=== PATIENT | male | born 1940 | race Caucasian/White ===

== ENCOUNTER → 2020-08-27 12:56 | Outpatient (CLI) | payer MEDICARE, SELFPAY ==
--- NOTE | ~2020-08-27 | CT_ITS ---
EXAMINATION: CT chest abdomen pelvis w con EXAM DATE: 08/27/2020 13:52 INDICATION: Prostate cancer. TECHNIQUE: Spiral CT of the chest, abdomen and pelvis was performed following intravenous injection o f 100 mL Omnipaque 350. Axial, coronal and sagittal images were reviewed. Coronal maximum intensity pixel images of chest reviewed. The dose-length product (DLP) for this examination was 1181.00 mGy- cm. The exposure was tailored according to patient size (auto mA exposure control), and iterative re construction (ASIR) was used as additional dose reduction technique. There is no prior study for santino richard. FINDINGS: CHEST: Ill-defined approximately 1 cm opacity left upper lobe, appearance most consistent with posti nfectious residua but a 3 month follow-up chest CT is recommended. There is mild emphysema and hyperi nflation. There are no pleural or pericardial effusions. Tracheobronchial tree is patent. There i s no mediastinal, hilar or axillary lymphadenopathy. There is no pneumothorax. Heart normal in si ze. There is mild coronary arterial calcification, arterial sclerosis. Congenital pectus excavatum. ABDOMEN PELVIS: The liver, spleen, adrenal glands and pancreas are unremarkable. Gallbladder is unre markable. No biliary obstruction. Portal and splenic veins are patent. Kidneys enhance symmetrical ly. There is no hydronephrosis. There is a left renal cyst measuring 2 cm. There are prostate radia tion seeds. Small bilateral inguinal fat-containing hernias. The bladder is unremarkable. There is no retroperitoneal or pelvic lymphadenopathy. There is moderate scattered arteriosclerotic disease. Status post right hemicolectomy. The stomach and small bowel are unremarkable. There is moderate am ount of colonic stool. No free intraperitoneal gas. There are no osteoblastic or osteolytic lesi ons identified. IMPRESSION: 1. Ill-defined left upper lobe opacity probably infectious but 3 month follow-up low-dose chest CT i ndicated. 2. Prostate radiation seeds. No evidence of metastatic disease. 3. Chronic findings. Reviewed, dictated and finalized at location B. 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 Ill-defined left upper lobe opacity probably infectious but 3 month follow- up low-dose chest CT indicated. 2. Prostate radiation seeds. No evidence of metastatic disease. 3. Chronic findings.
[2020-08-27 13:34] LABS: Estimated Glomerular Filt Rate > 60
== END ==
DX: C61 Malignant neoplasm of prostate (principal)
CPT/HCPCS: 71260; 74177; Q9967

== ENCOUNTER → 2021-04-18 11:21 | Outpatient (CLI) | payer MEDICARE, SELFPAY ==
--- NOTE | ~2021-04-18 | CT_ITS ---
EXAMINATION: CT chest abdomen pelvis w con EXAM DATE: 04/18/2021 12:03 INDICATION: Prostate cancer . Colon cancer. Hypertension. TECHNIQUE: Spiral CT of the chest, abdomen and pelvis was performed following intravenous injection o f 100 mL Omnipaque 350. Axial, coronal and sagittal images chest, abdomen and pelvis were reviewed. Coronal maximum intensity pixel images of chest reviewed. The dose-length product (DLP) for this ex amination was 1170.51 mGy-cm. The exposure was tailored according to patient size (auto mA exposure control), and iterative reconstruction (ASIR) was used as additional dose reduction technique. Compar vito is made to prior examination from 08/27/2020. FINDINGS: CHEST: Previously described ill-defined left upper lobe opacity is unchanged consistent with postinf ectious residua. There are no suspicious lung opacities. There are no pleural or pericardial effusio ns. Tracheobronchial tree is patent. There is no mediastinal, hilar or axillary lymphadenopathy. There is no pneumothorax. Heart normal in size. There is mild coronary arterial calcification, arterial sclerosis. ABDOMEN PELVIS: The liver, spleen, adrenal glands and pancreas are unremarkable. Gallbladder is unre markable. No biliary obstruction. Portal and splenic veins are patent. Kidneys enhance symmetrical ly. There is no hydronephrosis. There is 2 cm left renal cyst. There are radiation seeds in the pro state. Small inguinal fat-containing hernias. The bladder is unremarkable. There is no retroperiton eal or pelvic lymphadenopathy. [id number] Right hemicolectomy, unremarkable anastomosis site. The stomach and small bowel are unremarkable. T here is expected amount of colonic stool. No free intraperitoneal gas. There are no osteoblastic or osteolytic lesions identified. IMPRESSION: 1. Stable left upper lobe small opacity consistent with postinfectious residua. 2. No evidence of metastatic disease. Reviewed, dictated and finalized at location A. IMPRESSION: 1. Stable left upper lobe small opacity consistent with postinfectious residua . 2. No evidence of metastatic disease.
[2021-04-18 11:47] LABS: Estimated Glomerular Filt Rate > 60
== END ==
DX: C61 Malignant neoplasm of prostate (principal)
CPT/HCPCS: 71260; 74177; Q9967

== ENCOUNTER 2021-12-29 13:55 | Emergency (ER) | payer MEDICARE, SELFPAY ==
[2021-12-29 14:13] VITALS: BP 153/85; PULSE 60; RESP 12; TEMP 36.9; O2SAT 100
--- NOTE | 2021-12-29 14:14 | ED.WOUNDLAC ---
HPI - Wound/Laceration General Chief Complaint: Skin/Abscess/Foreign Body Stated Complaint: lump in groin area Time Seen by Provider: 12/29/21 14:14 Source: patient, RN notes reviewed and old records reviewed Mode of arrival: ambulatory Limitations: no limitations History of Present Illness HPI narrative: 81 year old male presents to express care with complaints of discomfort and bulging to the right groin since last Wednesday or . Patient denies any known injury to his right groin, denies any difficulty with urination or with passing his stool, states that he is uncomfortable but denies any acute sharp pain.Patient reports that he has history of prostate cancer and he had radiation treatments. Patient is from [facility] and is staying in the area at this time. Patient reports that he does not have PCP in the area. Onset (ago): day(s) (5) Location: other (right groin) Related Data Home Medications Medication Instructions Recorded Confirmed Unable to Obtain Home Medications 12/29/21 12/29/21 Allergies Allergy/AdvReac Type Severity Reaction Status Date / Time No Known Allergies Allergy Verified 12/29/21 14:22 Review of Systems Review of Systems: CONSTITUTIONAL: Denies fever, chills, or sweats. EYES: Denies visual changes, redness, or discharge. ENT: Denies rhinorrhea, congestion, sore throat, or otalgia. CARDIOVASCULAR: Denies chest pain, palpitations, or edema. RESPIRATORY: Denies cough or dyspnea. GASTROINTESTINAL: Positive for right groin abdominal discomfort, no nausea, vomiting, or diarrhea. GENITOURINARY: Denies dysuria or hematuria. SKIN: Denies rash or itching. MUSCULOSKELETAL: Denies back pain, joint pain, or myalgia. NEUROLOGIC: Denies headache, numbness, or weakness. PSYCHIATRIC: Denies anxiety or depression. All systems reviewed & are unremarkable except as noted in HPI and below PMFSH Past Medical History Medical History (Updated 12/29/21 @ 17:21 by Jennifer Schroeder NP) Colorectal cancer Hypertension Prostate cancer Surgical History Surgical History (Updated 12/29/21 @ 17:23 by Jennifer Schroeder NP) History of right hemicolectomy Social History Social History (Updated 12/29/21 @ 16:59 by Jennifer L. Elda, STORE CLERK) Smoking status: Former smoker Alcohol intake: current Alcohol use details: social Substance use type: does not use Gender identity (if verbalized by the patient): Male Comments At time of signature, agree with nursing past medical, surgical, social and family history. There is no relevant family history pertinent to the presenting complaint Exam Narrative: GENERAL: Well-appearing, well-nourished, and in no acute distress. HEAD: Normocephalic, atraumatic. EYES: PERRLA and EOMI. ENT: Nares clear, no rhinorrhea or epistaxis. Mucous membranes moist.TM s normal with throat pink with no lesions or exudates or tonsil swelling NECK: Supple.no lymphadenopathy CHEST: Clear to auscultation. No respiratory distress.SAO2 100% on room air HEART: Regular rate and rhythm. No murmur heard. Normal peripheral pulses. ABDOMEN: Soft, tender on palpation to bulging area in right groin, denies any acute sharp pain, nondistended, normal active bowel soundsdenies any bowel or bladder difficulty. EXTREMITIES: Normal range of motion. No edema. SKIN: Warm, dry, no rash. NEURO: No focal deficits. Alert and oriented x3. Course Course Level of Care: Express Care Visit Vital Signs Vital signs: Vital Signs Temperature 36.9 C 12/29/21 14:13 Pulse Rate 60 12/29/21 14:13 Respiratory Rate 12/29/21 14:13 Blood Pressure 153/85 H 12/29/21 14:13 Pulse Oximetry 100 12/29/21 14:13 Oxygen Delivery Room Air 12/29/21 14:13 Temperature 36.9 C 12/29/21 14:13 Pulse Rate 60 12/29/21 14:13 Respiratory Rate 12 12/29/21 14:13 Blood Pressure 153/85 H 12/29/21 14:13 Pulse Oximetry 100 12/29/21 14:13 Oxygen Delivery Room Air 12/29/21 14:13 MDM - Woun
== END 2021-12-29 14:49 | disposition home or self-care (01) ==
PROVIDERS: Emergency Provider Registered Nurse
DX: K40.90 Unilateral inguinal hernia, without obstruction or gangrene, not specified as recurrent (principal); Z87.891 Personal history of nicotine dependence; I10 Essential (primary) hypertension; Z85.46 Personal history of malignant neoplasm of prostate; Z85.038 Personal history of other malignant neoplasm of large intestine; Z92.3 Personal history of irradiation
CPT/HCPCS: 99212; G0463

== ENCOUNTER → 2022-02-02 14:37 | Outpatient (CLI) | payer MEDICARE, SELFPAY ==
--- NOTE | ~2022-02-02 | CT_ITS ---
. EXAMINATION: CT chest abdomen pelvis w con DATE: 02/02/2022 15:14 INDICATION: Malignant neoplasm of prostate. TECHNIQUE: Computed tomography (CT) of the chest, abdomen, and pelvis was performed with 100 mL Omnip aque 350 intravenous contrast. Automated exposure control and iterative reconstruction technique were employed. The dose-length product was 1171.62 mGy-cm. COMPARISON: CT chest, abdomen, and pelvis 04/18/2021 FINDINGS: CHEST CT: There is mild scarring at right lung apex. There is mild atelectasis bilaterally. There is a stable 1 3 mm nodule in left upper lobe, likely benign. There is a new 9 mm nodule at right major fissure. No pleural effusion. The heart size is normal. There are coronary artery calcifications. No pericardial effusion. There are bridging endplate osteophytes at multiple levels in the spine, consistent with di ffuse idiopathic skeletal hyperostosis (DISH). ABDOMEN/PELVIS CT: The liver, gallbladder, spleen, pancreas, and adrenal glands are normal. There is cortical thinning o f the kidneys. There are cysts in left kidney measuring up to 2.2 cm. The prostate is mildly enlarged . There are brachytherapy seeds in the prostate. There are small bilateral inguinal hernias containin g fat. There are no dilated loops of bowel. There are changes of right hemicolectomy. There are no pa thologically enlarged lymph nodes. There is no free intraperitoneal fluid. There is severe lumbar spo ndylosis. IMPRESSION: 1. New 9 mm nodule in right lung that may be infection/atelectasis or primary bronchogenic carcinoma. Noncontrast low-dose chest CT is recommended in 3 months. Reviewed, dictated and finalized at location A. IMPRESSION: 1. New 9 mm nodule in right lung that may be infection/atelectasis or primary b ronchogenic carcinoma. Noncontrast low-dose chest CT is recommended in 3 months .
[2022-02-02 15:05] LABS: Estimated Glomerular Filt Rate > 60
== END ==
DX: C61 Malignant neoplasm of prostate (principal); C18.2 Malignant neoplasm of ascending colon
CPT/HCPCS: 71260; 74177; Q9967

== ENCOUNTER 2022-02-18 01:30 | Day surgery (SDC) | payer MEDICARE, SELFPAY ==
--- NOTE | 2022-02-13 10:17 | PC.NURSE ---
Report to the Outpatient Waiting Room, entrance under the green pavilion located off [facility], at time ___0600____ on date __02/18/22 . OR Time: ___719 . - You and your visitor will be asked to self-screen and do not enter if you have any COVID symptoms. - Only one visitor and NO children visitors are allowed at this time. - The patient visitor is requested to leave or wait in car when not with patient due to restrictions. - A mask is required within the hospital. Patients may have clear liquids (water, carbonated beverages, clear teas, apple juice) until 3 hours prior to surgery (0430 AM) with a maximum of 20 ounces. - No food from midnight until time of surgery - Infants may have breast milk until 4 hours before surgery, formula 6 hours prior to surgery. - Children will be allowed to drink immediately following surgery. If applicable, please bring a bottle or sippy cup to assist with drinking. Juice, water, soda, and popsicles are readily available. For infants on formula, please bring formula the day of surgery. Pacifiers are allowed. Take the following medications with a SIP of water the morning of surgery: NONE Medications to discontinue per ANESTHESIA - _GLUCOSAMINE 3 DAYS PRIOR TO SURGERY, Date to take last dose 02/14/22__ Please no make-up, nail frisian, hairspray, perfume, deodorant, or body powder the day of surgery. No jewelry (including any body piercings) or valuables the day of surgery, leave them at home. Please take a shower or bath the night before, or the morning of, surgery with an antibacterial soap. Wear comfortable, loose fitting clothing. Children are encouraged to wear pajamas. - Jewelry must be removed prior to entering the operating room. Rings and piercings that are not removed may be cut off. - The hospital will not accept responsibility for valuables. - Please leave all valuables, including medications, at home the day of surgery. If you are going home after surgery, a licensed superintendent drivers must drive you home. - NO public transportation without another adult. - We recommend that an adult stay with you for 24 hours following discharge. - We also recommend that you do not drive, make important decision, drink alcoholic beverages, or take any drugs that were not prescribed by your health care provider for at least 24 hours after your discharge time. For Pediatric surgeries, we recommend two adults accompany the child home (only one inside the building at this time). Follow any additional instructions given to you from your surgeon. HIBICLENS SHOWER AM OF SURGERY If you or anyone in your household have experienced Covid symptoms in the past week, please notify your surgeon or the nurse liaison at the phone number below for possible testing. Telephone instructions given to ___PT and asked if any additional questions and then verbalized understanding. Patient advised to call surgeon office or pre surgery nurse liaison [phone] if any additional questions.
--- NOTE | 2022-02-17 19:24 | PM.SD2 ---
Same Day Admit/Disch: HPI History of Present Illness Chief complaint: Right Ing Hernia Narrative: Carlito Salazar is a 81 year old male with a history of ascending colon CA and prostate CA noted in December to have right inguinal bulge. It is frequently uncomfortable but no severe pain. Exam in office showed right inguinal hernia. No hx of previous inguinal hernia repair. [facility] Past Medical History Medical History Colorectal cancer Hypertension Myasthenia gravis Prostate cancer Surgical History Surgical History H/O knee surgery History of right hemicolectomy Family History Family History Other Hypertension Social History Social History Smoking status: Former smoker Tobacco type: cigarettes Second hand tobacco smoke exposure: No Additional smoking assessment comments: STATES SMOKED OFF/ON SOCIALLY AGE 20-50, QUIT 1996 Alcohol intake: current Drinks per week: 7 Alcohol use details: social Substance use: never Substance use type: does not use Living arrangements: with friend(s) Additional living arrangements comments: LIVES WITH SIGNIFICANT OTHER Gender identity (if verbalized by the patient): Male Spiritual care concerns: No Same Day Admit/Disch: Med Pre-admit Medications Home Medications Medication Instructions Recorded Confirmed Type ascorbate calcium (vitamin C) 500 500 mg PO DAILY 01/01/22 02/13/22 History mg tablet aspirin 81 mg tablet,delayed 81 mg PO DAILY 01/01/22 02/13/22 History release (Adult Aspirin Regimen) glucosamine sulfate 500 mg tablet 500 mg PO DAILY 01/01/22 02/13/22 History (Glucosamine) losartan 25 mg tablet 25 mg PO DAILY 01/01/22 02/13/22 History pyridostigmine bromide 180 mg 180 mg PO BID 01/01/22 02/13/22 History tablet,extended release hydrocodone 5 mg-acetaminophen 325 1 - 2 tablet PO Q6H PRN pain #7 02/18/22 Rx mg tablet tabs ibuprofen 600 mg tablet 600 mg PO Q6H PRN pain #14 tabs 02/18/22 Rx Exam Const: General: comfortable, no acute distress, alert and awake HENMT: Head: normocephalic and atraumatic Mouth: Yes Normal oral and palatal mucosa present Eyes: Conjunctivae: conjunctivae normal Pupils: Equal, round and reactive pupils present EOM: EOMs intact bilaterally Neck: Neck: normal visual inspection, no lymphadenopathy and nontender Resp: Effort & Inspection: normal respiratory effort Auscultation: clear to auscultation bilaterally Cardio: Rate: regular rate Rhythm: regular rhythm Heart sounds: no gallops, no murmurs and no rubs GI: Inspection: non-distended GI Palp: Yes Soft to palpation, No Tenderness to palpation present (GI), No Hepatomegaly present and No Splenomegaly present : Male General Exam: Yes hernia (right inguinal bulge, redicible hernia) and No tenderness Penis: Yes normal penis Scrotum: scrotum normal Testes: Testes normal Skin: Lesions: no lesions Rashes: no rashes Neuro: General: no focal motor deficits and CN's II-XI intact bilaterally Cranial nerves: Yes Equal, round and reactive pupils present, Yes Bilaterally intact EOM present, Yes facial symmetry and Yes Midline tongue present Speech: normal speech Motor exam (neuro): 5/5 motor strength present throughout and Motor abnormalities not present Extrem: General: no clubbing, cyanosis or edema and edema Psych: Affect: normal affect Thought process: Normal thought process present Insight: Good insight present (Psych) DS: Summary Time Spent with Patient Time attestation: Total time spent providing and/or coordinating discharge services: DS: Admitting Diagnosis Discharge Date 02/18/2022 Admitting Diagnosis reducible symptomatic right inguinal hernia. Plan to repair as an outpatient with mesh under anesthesi
[2022-02-18 06:15] VITALS: BP 144/71; PULSE 62; RESP 14; TEMP 36.6; O2SAT 99; BMI 30.2
[2022-02-18] MEDS: ACETAMINOPHEN 500 MG TABLET 1000 MG PO (06:48)
[2022-02-18] MEDS: KETOROLAC 15 MG/ML VIAL (*BKC) IV PUSH (06:49)
--- NOTE | 2022-02-18 07:00 | WPDANESEPPF ---
Anes - Initial Pre Proc Eval Procedure: Operation Date: 02/18/22 07:30 Proposed Procedures p Right Inguinal Hernia Repair - Moreno Valdez MD Date/Time: 02/18/22 07:00 Surgeon: Moreno Valdez MD Pre Op Diagnosis: Right Ing Hernia Patient Data Age: 81 Gender: M Height: 1.71 m Weight: 88.9 kg Last Vital Signs Temp 36.6 C 02/18/22 06:15 Pulse 62 02/18/22 06:15 Resp 14 02/18/22 06:15 BP 144/71 H 02/18/22 06:15 Pulse Ox 99 02/18/22 06:15 O2 Del Method Room Air 02/18/22 06:15 Allergies Allergy/AdvReac Type Severity Reaction Status Date / Time No Known Allergies Allergy Verified 02/13/22 09:56 Home Medications Medication Instructions Recorded Confirmed Type ascorbate calcium (vitamin C) 500 500 mg PO DAILY 01/01/22 02/13/22 History mg tablet aspirin 81 mg tablet,delayed 81 mg PO DAILY 01/01/22 02/13/22 History release (Adult Aspirin Regimen) glucosamine sulfate 500 mg tablet 500 mg PO DAILY 01/01/22 02/13/22 History (Glucosamine) losartan 25 mg tablet 25 mg PO DAILY 01/01/22 02/13/22 History pyridostigmine bromide 180 mg 180 mg PO BID 01/01/22 02/13/22 History tablet,extended release Patient hx anesthesia problems: none Family hx anesthesia problems: none Results Review: All pre-operative results and documents have been reviewed as part of the pre-operative evaluation. [facility] Past Medical History Medical History Colorectal cancer Hypertension Myasthenia gravis Prostate cancer Surgical History Surgical History H/O knee surgery History of right hemicolectomy Family History Family History Other Hypertension Social History Social History Smoking status: Former smoker Tobacco type: cigarettes Second hand tobacco smoke exposure: No Additional smoking assessment comments: STATES SMOKED OFF/ON SOCIALLY AGE 20-50, QUIT 1996 Alcohol intake: current Drinks per week: 7 Alcohol use details: social Substance use: never Substance use type: does not use Living arrangements: with friend(s) Additional living arrangements comments: LIVES WITH SIGNIFICANT OTHER Gender identity (if verbalized by the patient): Male Spiritual care concerns: No Anes - Eval Final PreProcedure Day of Procedure 02/18/22 07:00 Patient weight: obese Heart: regular rate and rhythm Lungs: decreased breath sounds Airway: Mallampati scale class II Neurological: alert and oriented Last oral intake: >/= 8 hours ASA classification: III Emergent: no Anesthetic plan: proceed Anesthesia type and monitoring: general GIVS and standard monitoring Results Review: All pre-operative results and documents have been reviewed as part of the pre-operative evaluation. Informed Consent: The patient's anesthetic plan and its attendant risks and benefits were discussed with the patient/family/POA. Questions were solicited and answers provided to the satisfaction of the patient/family/POA.
--- NOTE | 2022-02-18 07:06 | WPDHPUPDATE1 ---
History and Physical Update Update Date/Time: 02/18/22 07:06 History and Physical has been reviewed, including an updated exam of the patient. There are NO changes in the patient's condition. Risks, benefits, and alternatives have been discussed and questions answered. Patient agrees to proceed with procedure.
[2022-02-18] MEDS: LACTATED RINGERS 1,000 ML 30 ML IV CONT ×2 (07:07→08:30)
[2022-02-18] MEDS: ceFAZolin 2 GM/D5W 50 ML 2 GM/50 ML BAG IVPB (07:19)
[2022-02-18] MEDS: BUPIVACAINE/EPINEPHRINE 0.25% 50 ML VIAL INFILTRATE (08:00)
--- NOTE | 2022-02-18 08:29 | W.PM.PROC2 ---
Procedure Note - Detailed Date of Procedure 02/18/22 Pre-op Diagnosis Right Ing Hernia Post-op Diagnosis Same Procedure Performed Right inguinal hernia repair with large PerFix Light plug and patch Surgeon Moreno Valdez MD Printing Bindery Assistant Shannan HUMPHREYS Anesthesia General (G IV S), Local (0.25% Marcaine with epinephrine) and None (Xaracoll) Indications Patient had noticed a bulge in the right groin. It is uncomfortable particularly when protruding. He is taken to surgery now for repair. Findings Showed a chronic indirect hernia. Description of Procedure Patient was taken to surgery and anesthesia was introduced. The left groin and genitalia were prepped and draped. The proposed incision was marked on the skin. Local was infiltrated in the area of the anticipated incision and in the subcutaneous. Incision was made and dissection was carried through the subcutaneous. Crossing veins were cauterized and divided. Dissection continued through Lisa's fascia to the external oblique aponeurosis. The aponeurosis was exposed as was the external ring. Additional local was infiltrated deep to the aponeurosis in the area of the inguinal canal and its contents. The external oblique was then opened laterally and extended medially through the external ring. The leaves of the external oblique aponeurosis were then dissected free from the inguinal canal contents. The ilioinguinal nerve was left attached to the spermatic cord and carefully preserved through the surgery. The cord was then mobilized medially on a [place] drain. The spermatic cord was then further mobilized back to the internal ring. We dissected in the anteromedial aspect of the spermatic cord. The hernia sac was found. It was fairly large. The sac was dissected free from the cord contents. It was dissected back to the internal ring. A high dissection was performed. The sac was then dunked into the retroperitoneum. A large PerFix Light plug was then placed in the defect. It is outer edges were sutured to the transversalis fascia with interrupted 3-0 Vicryl suture. We further skeletonized the spermatic cord and cremasteric fibers. No direct hernias were noted. Patch was then cut to the appropriate size and placed over the inguinal canal floor. Xaracoll was then placed over the patch. The cord and ilioinguinal nerve were then laid over the Xaracoll. The external oblique aponeurosis was closed with interrupted 3-0 Vicryl suture. Xaracoll was placed over the external oblique aponeurosis. Lisa's fascia was closed with interrupted 3-0 Vicryl suture. Xaracoll was then placed in the subcutaneous. The skin was loosely approximated with 4-0 Vicryl subcuticular interrupted skin suture. Skin was finally closed with running 4-0 Monocryl skin suture. Wound was dressed with Exofin surgical adhesive. The patient was awakened and taken to recovery in good condition. Sponge needle counts were correct x2. Implants Large PerFix Light plug and patch, 0 Gaspar Estimated Blood Loss -5 Drains No Packing No Pathology None sent Complications No immediate complications Condition Stable Disposition Same day [facility] Billing Surgery - Charge Forward: Surgery Billing (Right inguinal hernia repair)
[2022-02-18 08:30] VITALS: BP 107/58; PULSE 67; RESP 16; O2SAT 96
[2022-02-18 09:00] VITALS: BP 115/63; PULSE 59; RESP 16; O2SAT 97
[2022-02-18 09:30] VITALS: BP 127/63; PULSE 57; RESP 14
[2022-02-18 10:00] VITALS: BP 114/56; PULSE 61; RESP 14
[2022-02-18 10:25] VITALS: BP 130/67; PULSE 61; RESP 14
--- NOTE | 2022-02-18 10:42 | SUR.PHASEII ---
1040 PT MEETS DISCHARGE CRITERIA. PT DRESSED & WAITING ON RIDE HOME.
== END 2022-02-18 10:45 | disposition home or self-care (01) ==
PROVIDERS: Visit Provider Surgery
PROC: (CPT 49505; principal; 2022-02-18 07:30)
DX: K40.90 Unilateral inguinal hernia, without obstruction or gangrene, not specified as recurrent (principal); I10 Essential (primary) hypertension; Z85.46 Personal history of malignant neoplasm of prostate; Z87.891 Personal history of nicotine dependence; E66.9 Obesity, unspecified; Z68.30 Body mass index [BMI] 30.0-30.9, adult; Z85.038 Personal history of other malignant neoplasm of large intestine
CPT/HCPCS: 49505; A9270; C1781; J0690; J1100; J1885; J2405; J2704; J3010; J7120

== ENCOUNTER → 2022-05-25 09:18 | Outpatient (CLI) | payer MEDICARE, SELFPAY ==
--- NOTE | ~2022-05-25 | CT_ITS ---
EXAMINATION: CT diagnostic chest w con DATE: 05/25/2022 09:50 INDICATION: Pulmonary nodule TECHNIQUE: Computed tomography (CT) of the chest was performed with 75 CC Omnipaque 350 intravenous c ontrast. Automated exposure control and iterative reconstruction technique were employed. Exam dose: 378.26 mGy-cm total exam DLP. COMPARISON: 02/02/2022 CT chest abdomen pelvis FINDINGS: Stable right apical lung scarring. Interval near resolution of 9 mm nodule at the superior aspect of the greater fissure on the right since 02/02/2022, consistent with benign process. Stable focal approximately 12 mm spiculated opacity in the posterolateral left upper lobe, not signif icantly changed since 09/06/2020, most likely scarring. No interval significant new or developing pulmonary mass density is noted. No pulmonary infiltrate or consolidation. No thoracic aortic aneurysm or dissection. There is thoracic aortic and iliac and coronary artery vance cification. Normal heart size. No pericardial or pleural effusion. No hilar or mediastinal mass lesion or lymphadenopathy. Normal morphology of the adrenal glands. Diffuse idiopathic skeletal hyperostosis of the thoracic spine prominent degenerative disc disease at L1-2. No suspicious osteolytic or osteoblastic lesions. IMPRESSION: Interval near resolution of previously reported 9 mm nodular density at the superior asp ect of the right greater fissure Stable right apical and left upper lobe focal probable scarring Reviewed, dictated and finalized at Location A. Reviewed, dictated and finalized at location B. INVESTIGATION MANAGER IMPRESSION: Interval near resolution of previously reported 9 mm nodular densi ty at the superior aspect of the right greater fissure Stable right apical and left upper lobe focal probable scarring
[2022-05-25 09:40] LABS: Estimated Glomerular Filt Rate 53
== END ==
DX: R91.1 Solitary pulmonary nodule (principal)
CPT/HCPCS: 71260; Q9967

== ENCOUNTER → 2023-03-05 10:52 | Outpatient (CLI) | payer MEDICARE, SELFPAY ==
--- NOTE | ~2023-03-05 | CT_ITS ---
EXAMINATION: CT chest abdomen pelvis w con DATE: 03/05/2023 11:38 INDICATION: Malignant neoplasm of the prostate TECHNIQUE: Transaxial computed tomographic images of the chest, abdomen, and pelvis were obtained aft er the administration of 100 cc of Omnipaque 350 intravenous contrast. The dose-length product (DLP) was 1240.07 mGy-cm. Automated exposure control and iterative reconstruction technique were employed. COMPARISON: 05/25/2022, 02/02/2022 FINDINGS: CHEST CT: Stable 13 mm nodule of the left upper lobe. There is a stable 9 mm nodule of the right major fissure. No new pulmonary nodules are identified. The lungs are free of acute opacities. No pleural effusion or pneumothorax. No pathologically enlarged thoracic lymph nodes are identified. The heart size is no rmal. There are bridging osteophytes at multiple levels in the spine, consistent with diffuse idiopat hic skeletal hyperostosis (DISH). ABDOMEN/PELVIS CT: The liver is diffusely low in attenuation when compared with the spleen, consistent with hepatic stea tosis. The spleen, pancreas, gallbladder, and adrenal glands are normal. Cysts of the left kidney abimael sure up to 2.5 cm. The right kidney is unremarkable. No pathologically enlarged abdominal or pelvic l ymph nodes are identified. No free intraperitoneal gas or evidence of bowel obstruction. There is vance cified atherosclerosis of the aorta and many of the other arteries. A moderate volume of colonic stoo l is present. Brachytherapy seeds are noted in the prostate. There are changes of right hemicolectomy . There is severe lumbar spondylosis. IMPRESSION: 1. No evidence of metastatic disease. Reviewed, dictated and finalized at location F.
[2023-03-05 11:26] LABS: Estimated Glomerular Filt Rate 45
== END ==
DX: C61 Malignant neoplasm of prostate (principal)
CPT/HCPCS: 71260; 74177; Q9967

== ENCOUNTER 2023-03-20 11:47 | Emergency (ER) | payer MEDICARE, SELFPAY ==
[2023-03-20 11:56] VITALS: BP 126/77; PULSE 57; RESP 16; TEMP 36.8; O2SAT 98
--- NOTE | 2023-03-20 11:58 | ED.SKABFB ---
HPI - Skin/Abscess/Foreign Bdy General Chief complaint: Skin/Abscess/Foreign Body Stated complaint: Bump on back Time Seen by Provider: 03/20/23 11:58 Source: patient, RN notes reviewed and old records reviewed Mode of arrival: ambulatory Limitations: no limitations History of Present Illness HPI narrative: 82-year-old male presents to the [facility] with complaints of a ?bump? on his back. Patient noticed it about a week ago. Has been cleaning it and putting Neosporin on it. Noticed increased redness. Area is right upper mid back. Drainage is noted. Onset (ago): week(s) (1) Related Data Home Medications Medication Instructions Recorded Confirmed ascorbate calcium (vitamin C) 500 500 mg PO DAILY 01/01/22 03/20/23 mg tablet aspirin 81 mg tablet,delayed 81 mg PO DAILY 01/01/22 03/20/23 release (Adult Aspirin Regimen) glucosamine sulfate 500 mg tablet 500 mg PO DAILY 01/01/22 03/20/23 (Glucosamine) losartan 25 mg tablet 25 mg PO DAILY 01/01/22 03/20/23 pyridostigmine bromide 180 mg 180 mg PO BID 01/01/22 03/20/23 tablet,extended release Allergies Allergy/AdvReac Type Severity Reaction Status Date / Time No Known Allergies Allergy Verified 03/20/23 11:59 Review of Systems Review of Systems: All systems reviewed & are unremarkable except as noted in HPI and below Constitutional: Constitutional: Reports no additional constitutional complaints Eyes: Eyes: Reports no additional eye complaints ENT: Reports system reviewed and no additional complaints, except as documented Cardiovascular: Cardiovascular: Reports no additional cardiovascular complaints, Denies chest pain and Denies dyspnea Respiratory: Respiratory: Reports no additional respiratory complaints, Denies chest congestion, Denies cough and Denies dyspnea Gastrointestinal: Gastrointestinal: Reports no additional gastrointestinal complaints, Denies abdominal pain, Denies nausea and Denies vomiting Musculoskeletal: Musculoskeletal: Reports no additional musculoskeletal complaints Integumentary/Breasts: Skin/Breast: Reports as per HPI, Reports swelling and Reports erythema Neurologic: Reports system reviewed and no additional complaints, except as documented Psychiatric: Psychiatric: Reports no additional psychiatric complaints Allergic/Immunologic: Allergic/Immunologic: Reports no additional allergic/immunologic complaints PMFSH Past Medical History Medical History Colorectal cancer Hypertension Myasthenia gravis Prostate cancer Surgical History Surgical History H/O inguinal hernia repair Right Inguinal hernia repair on 02/18/22 H/O knee surgery History of right hemicolectomy Family History Family History Other Hypertension Social History Social History Smoking status: Former smoker Tobacco type: cigarettes Second hand tobacco smoke exposure: No Additional smoking assessment comments: STATES SMOKED OFF/ON SOCIALLY AGE 20-50, QUIT 1996 Alcohol intake: current Drinks per week: 7 Alcohol use details: social Substance use: never Substance use type: does not use Living arrangements: with friend(s) Additional living arrangements comments: LIVES WITH SIGNIFICANT OTHER Gender identity (if verbalized by the patient): Male Spiritual care concerns: No Comments At the time of my signature, I reviewed and agree with the nursing past medical, surgical, social, and family history. There is no relevant family history pertinent to the patient complaint. Exam Const: General: cooperative, healthy appearing, comfortable, no acute distress, well developed, alert and well nourished Nutritional Appearance: well nourished Orientation/consciousness: patient oriented x3 Limitations: no limitations HEN
== END 2023-03-20 12:17 | disposition home or self-care (01) ==
PROVIDERS: Emergency Provider Nurse Practitioner
DX: L02.212 Cutaneous abscess of back [any part, except buttock and flank] (principal); I10 Essential (primary) hypertension; Z85.46 Personal history of malignant neoplasm of prostate; Z79.82 Long term (current) use of aspirin; Z79.899 Other long term (current) drug therapy; Z87.891 Personal history of nicotine dependence
CPT/HCPCS: 87070; 87075; 87205; 99213; G0463

== ENCOUNTER 2023-03-27 12:16 | Emergency (ER) | payer MEDICARE, SELFPAY ==
[2023-03-27 12:41] VITALS: BP 129/72; PULSE 72; RESP 16; TEMP 36.6; O2SAT 99
--- NOTE | 2023-03-27 12:49 | ED.SKABFB ---
HPI - Skin/Abscess/Foreign Bdy General Chief complaint: Skin/Abscess/Foreign Body Stated complaint: BACK PAIN Source: patient Mode of arrival: ambulatory Limitations: no limitations History of Present Illness HPI narrative: 82-year-old male presented for complaint of red ?lump? to the right middle back. Patient was seen here on 03/20/23 for the same complaint, however at that time the site was more red, painful and draining. Patient completed the course of clindamycin as prescribed, and reports improvement. However he states he will be flying to [place] in 2 days, and with travel he is concerned the reddened tender area will be more painful. Not taking anything for pain. Denies active drainage. Related Data Home Medications Medication Instructions Recorded Confirmed ascorbate calcium (vitamin C) 500 500 mg PO DAILY 01/01/22 03/20/23 mg tablet aspirin 81 mg tablet,delayed 81 mg PO DAILY 01/01/22 03/20/23 release (Adult Aspirin Regimen) glucosamine sulfate 500 mg tablet 500 mg PO DAILY 01/01/22 03/20/23 (Glucosamine) losartan 25 mg tablet 25 mg PO DAILY 01/01/22 03/20/23 pyridostigmine bromide 180 mg 180 mg PO BID 01/01/22 03/20/23 tablet,extended release Allergies Allergy/AdvReac Type Severity Reaction Status Date / Time No Known Allergies Allergy Verified 03/27/23 12:38 Review of Systems Review of Systems: CONSTITUTIONAL: Denies body aches, fever, chills, or sweats. EYES: Denies visual changes, redness, or discharge. ENT: Denies rhinorrhea, congestion CARDIOVASCULAR: Denies chest pain, palpitations, or edema. RESPIRATORY: Denies cough or dyspnea. GASTROINTESTINAL: Denies abdominal pain, nausea, vomiting, or diarrhea. SKIN: per HPI MUSCULOSKELETAL: Denies back pain, joint pain, or myalgia. NEUROLOGIC: Denies headache, numbness, tingling, or weakness. [facility] Past Medical History Medical History Colorectal cancer Hypertension Myasthenia gravis Prostate cancer Surgical History Surgical History H/O inguinal hernia repair Right Inguinal hernia repair on 02/18/22 H/O knee surgery History of right hemicolectomy Family History Family History Other Hypertension Social History Social History Smoking status: Former smoker Tobacco type: cigarettes Second hand tobacco smoke exposure: No Additional smoking assessment comments: STATES SMOKED OFF/ON SOCIALLY AGE 20-50, QUIT 1996 Alcohol intake: current Drinks per week: 7 Alcohol use details: social Substance use: never Substance use type: does not use Living arrangements: with friend(s) Additional living arrangements comments: LIVES WITH SIGNIFICANT OTHER Gender identity (if verbalized by the patient): Male Spiritual care concerns: No Comments At time of signature, I have reviewed and agree with nursing past medical, surgical, social and family history unless otherwise noted. Please see nursing chart for further information. There is no relevant family history pertinent to the presenting complaint Exam Narrative: GENERAL: Well-appearing HEAD: Normocephalic, atraumatic. EYES: conjunctivae clear, and EOMI. ENT: Mucous membranes moist. NECK: Supple. No lymphadenopathy CHEST: Clear to auscultation. HEART: Regular rate and rhythm. SKIN: Warm, dry. Right mid back with 6x3.5 cm raised area of erythema and warmth (c/w previous documentation). Mild tenderness. Site is firm. No fluctuance or active drainage. The skin marker shows the surrounding erythema from previous documentation is noted to be improved. NEURO: Alert and oriented x3. Course Course Emergency Course: Patient is aware of diagnosis, understands and agrees to treatment plan. Anticipatory guidance given. Patient agrees to fo
== END 2023-03-27 13:10 | disposition home or self-care (01) ==
PROVIDERS: Emergency Provider Nurse Practitioner Family
DX: L02.212 Cutaneous abscess of back [any part, except buttock and flank] (principal); Z87.891 Personal history of nicotine dependence; I10 Essential (primary) hypertension; Z85.038 Personal history of other malignant neoplasm of large intestine; Z85.46 Personal history of malignant neoplasm of prostate; Z79.82 Long term (current) use of aspirin
CPT/HCPCS: 99213; G0463

== ENCOUNTER 2024-07-11 18:54 | Emergency (ER) | payer MEDICARE, SELFPAY ==
--- NOTE | ~2024-07-11 | CT_ITS ---
History: Fall PROCEDURE: CT cervical spine without intravenous contrast. COMPARISON: None. Reference is made to a study CT examination of the chest abdomen and pelvis dated 03/05/2023 TECHNIQUE: Multiple contiguous axial images of the cervical spine were performed without the administration of i ntravenous contrast. DLP: 504 mGy-cm FINDINGS: Preservation of the normal curvature of the cervical spine is identified. Significant degenerative disease is identified, with osteophyte formation, and disc space narrowing. Facet arthropathy is also noted, as is ossification of the posterior longitudinal ligament. No acute fractures are present. Right apical scarring. The remainder of the bilateral upper lobes are unchanged from 03/05/2023 No soft tissue abnormality is present. The airway is patent. Impression: Degenerative disease, without acute fracture. Reviewed, dictated and finalized at location A. WINDER Impression: Degenerative disease, without acute fracture.
--- NOTE | ~2024-07-11 | CT_ITS ---
History: Fall. Unknown LOC PROCEDURE: CT head without contrast. COMPARISON: None TECHNIQUE: Axial imaging of the head performed from the skull base to the vertex without IV contrast. Sagittal a nd coronal reformations obtained. DLP: 681 mGy-cm FINDINGS: The ventricles are minimally enlarged. The dilatation of the ventricles is proportional to the degree of sulcal prominence, not uncommon in the senescent brain. Decreased attenuation is identified within the periventricular white matter, likely secondary to micr ovascular ischemic disease, in a patient of this age. Right frontoparietal scalp hematoma. There is no mass, mass effect or midline shift. There is no abnormal extra-axial fluid collection or intracranial hemorrhage. Visualized paranasal sinuses are clear. The mastoid air cells are well aerated. No acute displaced fractures within the overlying cranium. Impression: Right frontoparietal scalp hematoma, without acute intracranial hemorrhage or suspicious mass effect. Reviewed, dictated and finalized at location A. CAL SCHEDULER Impression: Right frontoparietal scalp hematoma, without acute intracranial hemorrhage or s uspicious mass effect.
[2024-07-11 19:04] VITALS: BP 190/91; PULSE 66; RESP 16; O2SAT 100
[2024-07-11 20:00] VITALS: BP 154/76; PULSE 61; RESP 18; O2SAT 100
--- NOTE | 2024-07-11 20:28 | ED.GENADULT ---
HPI - General Adult General Chief complaint: Head Injury Stated complaint: head injury Time Seen by Provider: 07/11/24 19:14 History of Present Illness HPI narrative: Patient is an 83-year-old male who presents emergency department this evening status post a ground level fall that occurred at home. Patient states that he tripped over something and fell forward hitting the right side of his scalp on the edge of a wall. Patient states that he fell back on his aspirin sat there for a while as he did not want to get up right away. Patient was eventually able to get up. Denies any loss of consciousness and denies any blood thinner use. Patient did sustain a 3 cm laceration to the right scalp. Denies any neck pain. No additional symptoms or concerns at this time. Related Data Home Medications ?Medication ?Instructions ?Recorded ?Confirmed ?Last Taken ?Type ascorbate calcium (vitamin C) 500 500 mg PO DAILY 01/01/22 03/27/23 Unknown History mg tablet aspirin 81 mg tablet,delayed 81 mg PO DAILY 01/01/22 03/27/23 Unknown History release (Adult Aspirin Regimen) glucosamine sulfate 500 mg tablet 500 mg PO DAILY 01/01/22 03/27/23 Unknown History (Glucosamine) losartan 25 mg tablet 25 mg PO DAILY 01/01/22 03/27/23 Unknown History pyridostigmine bromide 180 mg 180 mg PO BID 01/01/22 03/27/23 Unknown History tablet,extended release Allergies Allergy/AdvReac Type Severity Reaction Status Date / Time No Known Allergies Allergy Verified 03/27/23 12:38 Review of Systems Review of Systems: All systems are reviewed and are negative unless stated otherwise in the HPI. FORMERLY [facility], [facility] Past Medical History Medical History Colorectal cancer Hypertension Myasthenia gravis Prostate cancer Surgical History Surgical History H/O inguinal hernia repair Right Inguinal hernia repair on 02/18/22 H/O knee surgery History of right hemicolectomy Family History Family History Other Hypertension Social History Social History Smoking status: Former smoker Tobacco type: cigarettes Second hand tobacco smoke exposure: No Additional smoking assessment comments: STATES SMOKED OFF/ON SOCIALLY AGE 20-50, QUIT 1996 Alcohol intake: current Drinks per week: 7 Alcohol use details: social Substance use: never Substance use type: does not use Living arrangements: with friend(s) Additional living arrangements comments: LIVES WITH SIGNIFICANT OTHER Gender identity (if verbalized by the patient): Male Spiritual care concerns: No Exam Narrative: General: Alert, awake, afebrile, in no acute distress. HEENT: PERRL, no rhinorrhea, no post nasal drip, oropharynx clear, 3 cm laceration to right scalp. Neck: Trachea midline, no JVD, no lymphadenopathy. Cardiovascular: Regular rate and rhythm, no murmurs, rubs or gallops, no peripheral edema. Respiratory: Clear to auscultation bilaterally, no tachypnea, no wheezing, no rhonchi, no rubs, no respiratory distress. Abdomen: Soft, nontender, nondistended, no rebound, no guarding, no peritoneal signs. Musculoskeletal: No joint swelling or deformity, normal muscle tone. Skin: No rashes or petechia, no signs of infection. Psychiatric: Alert and oriented, normal behavior and judgment for situation. Neurological: Alert and oriented to person, place, and time. Follows all commands. No focal deficits, speech is clear and fluent. Course Vital Signs Vital signs: Vital Signs Pulse Rate 66 07/11/24 19:04 Respiratory Rate 16 07/11/24 19:04 Blood Pressure 190/91 H 07/11/24 19:04 Pulse Oximetry 100 07/11/24 19:04 Oxygen Delivery Room Air 07/11/24 19:04 Pulse Rate 64 07/11/24 21:00 Respiratory Rate 16 07/11/24 21:00 Blood Pressure 143/118 H 07/11/24 21:00 Pulse Oximetry 99 07/11/24 21:00 Oxygen Delivery Room Air 07/11/24 19:04 Procedures Laceration Laceration 1: Date: 07/11/24 Time: 21:07 Site: scalp Size (cm): 3 Description: linear Depth: simple, single layer Local Anesthetic: none Pre-repair: wound explored, irrigated and deep structures intact ====== Skin Level ====== Skin layer closed with: ying Number of sutures: 6 ====== Subcutaneous Layer ====== ====== Muscle Layer ====== ====== Tendon Layer ====== Medical Decision Making MDM Narrative Medical decision making narrative: The patient was evaluated by myself in the emergency department. History is obtained from patient who is an independent historian and physical exam was performed. External medical records were reviewed at this time. Patient was administered 1 g of oral Tylenol at this time. Imaging studies obtained included CT brain and cervical spine without IV contrast which was independently interpreted by me revealing no acute process, which is pending final radiology interpretation. Differential diagnosis considerations include lacerations, abrasions, intracranial hemorrhage. Comorbidities impacting this visit include none. I have evaluated and discussed social determinants of health with the patient that could potentially impact subsequent diagnosis and treatment plans. On repeat assessment of the patient, reevaluation revealed that the patient is doing well and is in no acute distress. Patient symptoms have improved since he arrived to our emergency department. Repeat vital signs were all reviewed and noted to be stable. Differential diagnosis and treatment plan were discussed with the patient at bedside. Patient agrees with discussion and after shared medical decision making agrees with [admission/discharge. All questions were answered to the patient's satisfaction. Patient will follow up with his PCP within the next week. Patient was informed that the 6 ying were placed sedated to be removed by medical professional within the next 7-10 days and patient is agreeable. Patient was provided with strict return precautions and instructed to return to the emergency department if any new or worsening symptoms develop. The patient was discharged in stable condition. Vital Signs Vital Signs: Vital Signs Pulse Rate 66 07/11/24 19:04 Respiratory Rate 16 07/11/24 19:04 Blood Pressure 190/91 H 07/11/24 19:04 Pulse Oximetry 100 07/11/24 19:04 Oxygen Delivery Room Air 07/11/24 19:04 Pulse Rate 64 07/11/24 21:00 Respiratory Rate 16 07/11/24 21:00 Blood Pressure 143/118 H 07/11/24 21:00 Pulse Oximetry 99 07/11/24 21:00 Oxygen Delivery Room Air 07/11/24 19:04 Discharge Plan Discharge Clinical Impression: Fall from ground level, Laceration of scalp, Head injury Patient Disposition: Home, Self-Care Condition: Improved Instructions: Antibiotic Form, Laceration (DC), Head Injury (ED) Additional Instructions: Please follow-up with your family doctor within the next 3-5 days. Return to ED if any new or worsening symptoms develop. The 6 ying were placed to the need to be removed by medical professional within the next 7-10 days. Patient Language: Panamanian Prescriptions: No Action cephalexin 500 mg capsule 500 mg PO Q8H 7 Days Qty: 21 0RF aspirin [Adult Aspirin Regimen] 81 mg tablet,delayed release (DR/EC) 81 mg PO DAILY Patient Comments: HS pyridostigmine bromide 180 mg tablet extended release 180 mg PO BID Patient Comments: TID Rx Instructions: administer 6 hours apart glucosamine sulfate [Glucosamine] 500 mg tablet 500 mg PO DAILY Patient Comments: QAM Rx Instructions: administer with a meal ascorbate calcium (vitamin C) 500 mg tablet 500 mg PO DAILY Patient Comments: QAM losartan 25 mg tablet 25 mg PO DAILY Patient Comments: QAM Follow-up/Referrals: Jalen Barahona MD [Physician] - 1 Week UNKNOWN,DOCTOR [Primary Care Provider] - 1 Week Time of Disposition: 20:32
[2024-07-11 21:00] VITALS: BP 143/118; PULSE 64; RESP 16; O2SAT 99
[2024-07-11] MEDS: ACETAMINOPHEN 500 MG TABLET 1000 MG PO (21:14)
--- OUTSIDE RECORDS SUMMARY | 2024-07-13 20:23 | XMS_ITS | Clinical Summary ---
Author Organization [facility] Address [address] [place] [address] Care Team Providers Care [employer] Name Role Phone Unavailable Primary Care Provider Unavailabl e Source Comments [facility],non-owned Affiliates and Associated Physician Practices is amultiple site organization consisting of ambulatory clinics and hospital sitesin [place], [place], [place] and [place]. This disclosure is being madepursuant to the Care Everywhere program and may not contain all information available regarding this patient. Last updated 18.[facility] [employer] Allergies No known active allergies Medications * Be aware that medications may not be up to date on this document. Alwaysverify current medications with the patient. Medication Sig Dispensed Refills Start Date End Date Status ASPIRIN 81 PO Active losartan (COZAAR) 50 MG tablet Take 50 mg by mouth once daily Active pyridostigmine (MESTINON) 60 MG tablet Take 60 mg by mouth 5 times daily while awake Active Social History Tobacco Use Types Packs/Day Years Used Date Smoking Tobacco: Some Days Smokeless Tobacco: Never Sex and Gender Information Value Date Recorded Sex Assigned at Not on file Gender Identity Not on file Sexual Orientation Not on file Last Filed Vital Signs Vital Sign Reading Time Taken Comments Blood Pressure 140/72 07/18/2020 2:31 PM CENTRAL STERILIZATION TECHNICIAN Pulse 64 07/18/2020 2:31 PM CENTRAL STERILIZATION TECHNICIAN Temperature 36.8 ??C (98.3 ??F) 07/18/2020 2:31 PM CS T Respiratory Rate 16 07/18/2020 2:31 PM CENTRAL STERILIZATION TECHNICIAN Oxygen Saturation 97% 07/18/2020 2:31 PM CENTRAL STERILIZATION TECHNICIAN Inhaled Oxygen Concentration - - Weight 90.7 kg (200 lb) 07/18/2020 2:31 PM CENTRAL STERILIZATION TECHNICIAN Height 180.3 cm (5' 11 ) 07/18/2020 2:31 PM CENTRAL STERILIZATION TECHNICIAN Body Mass Index 27.89 07/18/2020 2:31 PM CENTRAL STERILIZATION TECHNICIAN Plan of Treatment Health Maintenance Due Date Last Done Comments DTAP/TDAP/TD VACCINES (1 - Tdap) 1959 PNEUMOCOCCAL VACCINE 50+ (1 of 2 - PCV) 1960 ZOSTER VACCINE (1 of 2) 09/14/1991 Respiratory Syncytial Virus (RSV) Vaccine Pt: or over 60 yrs (1 - 1-dose 75+ series) 2016 COVID-19 VACCINE (1 - 2023-2 5 season) 2024 INFLUENZA VACCINE (#1) 2024 DEPRESSION SCREENING 06/21/2024 HEPATITIS B VACCINE Aged Out No longe r eligible based on patient's age to complete this topic HIB VACCINE Aged Out No longer eligi ble based on patient's age to complete this topic HPV VACCINE Aged Out No longer eligi ble based on patient's age to complete this topic MENINGOCOCCAL (Group B) VACCINE Aged Out No longer eligible based on patient's age to complete this topic MENINGOCOCCAL VACCINE Aged Out No kacey kashif eligible based on patient's age to complete this topic
--- OUTSIDE RECORDS SUMMARY | 2024-07-13 20:23 | XMS_ITS | Referral Summary ---
Author Organization [facility] Address [address] [place] [address] Care Team Providers Care Bagger Meat Name Role Phone No, Physician Primary Care Provider [phone] Allergies No known active allergies Medications losartan (COZAAR) 50 mg tablet Take 1 tablet (50 mg total) by mouth daily Active aspirin 81 mg enteric coated tablet Take 1 tablet (81 mg total) by mouth daily Active pyRIDostigmine (MESTINON) 60 mg tabletIndication s:Ocular myasthenia gravis (HCC) TAKE 3 TABLETS(180 MG) BY MOUTH THREE TIMES DAILY 810 tablet 3 04/02/2023 Active Active Problems Problem Noted Date Diagnosed Date Nuclear sclerosis of both eyes 04/28/2023 Assessment & Plan (08/17/2023 2:01 PM BREAKER UP MACHINE OPERATOR): Now with posterior changes involving visual axis. Educated on findings and will hold off on spec update (unless just raising SEG HEIGHT which is too low). Will refer for cataract eval next available, sooner prn Assessment & Plan (04/28/2023 4:35 PM BREAKER UP MACHINE OPERATOR): Mild changes noted and discussed, not visually significant. Update specs as desired. Monitor. Ocular myasthenia gravis 09/12/2020 Assessment & Plan (08/17/2023 2:01 PM BREAKER UP MACHINE OPERATOR): Continue close f/u with neurology/neuro-oph Assessment & Plan (04/28/2023 4:35 PM BREAKER UP MACHINE OPERATOR): Well controlled on current therapy, continue follow up with neurology/neuro-oph Social History Tobacco Use Types Packs/Day Years Used Date Smoking Tobacco: Former Cigarettes Smokeless Tobacco: Never Tobacco Cessation:Counseling Given: Not Answered Personal Safety Answer Date Recorded Getting School Help Needed Not on file 06/20 Sex and Gender Information Value Date Recorded Sex Assigned at Not on file Legal Sex Male 2:45 PM CDT Gender Identity Not on file Sexual Orientation Not on file Plan of Treatment Not on file Insurance MEDICARE SOLUTIONS [facility] MEDICARE Address: [facility] [address] [place] [address] Care Teams Bagger Meat Relationship Specialty Start Date End Date No, Physician PCP - General 09/12/20
--- OUTSIDE RECORDS SUMMARY | 2024-07-13 20:23 | XMS_ITS | Referral Summary ---
Author Organization [facility] Address [address] [place] [address] Care Team Providers Care Lunchroom Attendant Name Role Phone Unavailable Primary Care Provider Unavailabl e Source Comments [facility],non-owned Affiliates and Associated Physician Practices is amultiple site organization consisting of ambulatory clinics and hospital sitesin [place], [place], [place] and [place]. This disclosure is being madepursuant to the Care Everywhere program and may not contain all information available regarding this patient. Last updated 18.[facility] [employer] Allergies No known active allergies Medications * [...] Comments Blood Pressure 140/72 07/18/2020 2:31 PM SCIENTIFIC PHOTOGRAPHER Pulse 64 07/18/2020 2:31 PM SCIENTIFIC PHOTOGRAPHER Temperature 36.8 ??C (98.3 ??F) 07/18/2020 2:31 PM CS T Respiratory Rate 16 07/18/2020 2:31 PM SCIENTIFIC PHOTOGRAPHER Oxygen Saturation 97% 07/18/2020 2:31 PM SCIENTIFIC PHOTOGRAPHER Inhaled Oxygen Concentration - - Weight 90.7 kg (200 lb) 07/18/2020 2:31 PM SCIENTIFIC PHOTOGRAPHER Height 180.3 cm (5' 11 ) 07/18/2020 2:31 PM SCIENTIFIC PHOTOGRAPHER Body Mass Index 27.89 07/18/2020 2:31 PM SCIENTIFIC PHOTOGRAPHER Plan of Treatment Not on file
--- OUTSIDE RECORDS SUMMARY | 2024-07-13 20:23 | XMS_ITS | Patient Health Summary ---
Author Organization [facility] Address [address] [place] [address] Care Team Providers Care Insurance Follow Up Representative Name Role Phone Unavailable Primary Care Provider Unavailabl e Note from [facility],non-owned Affiliates and Associated Physician Practices is amultiple site organization consisting of ambulatory clinics and hospital sitesin [place], [place], [place] and [place]. This disclosure is being madepursuant to the Care Everywhere program and may not contain all information available regarding this patient. Last updated 18.[facility] [employer] Allergies No known active allergies Medications * Be aware that medications may not be up to date on this document. Alwaysverify current medications with the patient. * ASPIRIN 81 PO * losartan (COZAAR) 50 MG tablet Take 50 mg by mouth once daily * pyridostigmine (MESTINON) 60 MG tablet Take 60 mg by mouth 5 times daily while awake Social History Tobacco Use Types Packs/Day Years Used Date Smoking Tobacco: Some Days Smokeless Tobacco: Never Sex and Gender Information Value Date Recorded Sex Assigned at Not on file Gender Identity Not on file Sexual Orientation Not on file Last Filed Vital Signs Vital Sign Reading Time Taken Comments Blood Pressure 140/72 07/18/2020 2:31 PM GRITTING MACHINE OPERATOR Pulse 64 07/18/2020 2:31 PM GRITTING MACHINE OPERATOR Temperature 36.8 ??C (98.3 ??F) 07/18/2020 2:31 PM CS T Respiratory Rate 16 07/18/2020 2:31 PM GRITTING MACHINE OPERATOR Oxygen Saturation 97% 07/18/2020 2:31 PM GRITTING MACHINE OPERATOR Inhaled Oxygen Concentration - - Weight 90.7 kg (200 lb) 07/18/2020 2:31 PM GRITTING MACHINE OPERATOR Height 180.3 cm (5' 11 ) 07/18/2020 2:31 PM GRITTING MACHINE OPERATOR Body Mass Index 27.89 07/18/2020 2:31 PM GRITTING MACHINE OPERATOR
--- OUTSIDE RECORDS SUMMARY | 2024-07-13 20:23 | XMS_ITS | Clinical Summary ---
Author Organization [facility] Address [address] [place] [address] Care Team Providers Care Site Superintendent Name Role Phone No, Physician Primary Care Provider [phone] Allergies No known active allergies Medications losartan [...] 04/28/2023 Assessment & Plan (08/17/2023 2:01 PM ENVIRONMENTAL PROGRAMS MANAGER): Now with posterior changes involving visual axis. Educated on findings and will hold off on spec update (unless just raising SEG HEIGHT which is too low). Will refer for cataract eval next available, sooner prn Assessment & Plan (04/28/2023 4:35 PM ENVIRONMENTAL PROGRAMS MANAGER): Mild changes noted and discussed, not visually significant. Update specs as desired. Monitor. 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 Del Castillo Social History Tobacco Use Types Packs/Day Years Used Date Smoking Tobacco: Former Cigarettes Smokeless Tobacco: Never Tobacco Cessation:Counseling Given: Not Answered Personal Safety Answer Date Recorded Getting School Help Needed Not on file 06/20 Sex and Gender Information Value Date Recorded Sex Assigned at Not on file Legal Sex Male 2:45 PM CDT Gender Identity Not on file Sexual Orientation Not on file Obstetrics History Plan of Treatment Health Maintenance Due Date Last Done Comments Depression Screening 1941 Fall Risk Assessment 1941 DTaP/Tdap/Td Vaccine (1 - Tdap) 1952 Hepatitis B Screening 09/14/1959 Zoster Vaccine (1 of 2) 09/14/1991 Pneumococcal vaccine 65+ (1 of 1 - PCV) 2006 Well Visit 65+ 2006 Influenza Vaccine (#1) 2024 03/15/2020, 2015 Insurance MEDICARE SOLUTIONS Care Teams Site Superintendent Relationship Specialty Start Date End Date No, Physician PCP - General 09/12/20
== END 2024-07-11 21:33 | disposition home or self-care (01) ==
PROVIDERS: Emergency Provider Emergency Medicine
DX: S01.01XA Laceration without foreign body of scalp, initial encounter (principal); W18.30XA Fall on same level, unspecified, initial encounter; I10 Essential (primary) hypertension; Z85.46 Personal history of malignant neoplasm of prostate; Z87.891 Personal history of nicotine dependence
CPT/HCPCS: 12002; 70450; 72125; 99284; A9270

== ENCOUNTER 2024-07-22 12:30 | Emergency (ER) | payer MEDICARE, SELFPAY ==
--- OUTSIDE RECORDS SUMMARY | 2024-07-22 12:32 | XMS_ITS | Referral Summary ---
Author Organization [facility] Address [address] [place] [address] Care Team Providers Care Dumpling Machine Operator Name Role Phone Unavailable Primary Care Provider Unavailabl e Source Comments [facility],non-owned Affiliates and Associated Physician Practices is amultiple site organization consisting of ambulatory clinics and hospital sitesin [place], [place], [place] and [place]. This disclosure is being madepursuant to the Care Everywhere program and may not contain all information available regarding this patient. Last updated 18.[facility] [employer] Allergies No known active allergies Medications * [...] Comments Blood Pressure 140/72 07/18/2020 2:31 PM VP CORPORATE PARTNERSHIPS Pulse 64 07/18/2020 2:31 PM VP CORPORATE PARTNERSHIPS Temperature 36.8 ??C (98.3 ??F) 07/18/2020 2:31 PM CS T Respiratory Rate 16 07/18/2020 2:31 PM VP CORPORATE PARTNERSHIPS Oxygen Saturation 97% 07/18/2020 2:31 PM VP CORPORATE PARTNERSHIPS Inhaled Oxygen Concentration - - Weight 90.7 kg (200 lb) 07/18/2020 2:31 PM VP CORPORATE PARTNERSHIPS Height 180.3 cm (5' 11 ) 07/18/2020 2:31 PM VP CORPORATE PARTNERSHIPS Body Mass Index 27.89 07/18/2020 2:31 PM VP CORPORATE PARTNERSHIPS Plan of Treatment Not on file
--- OUTSIDE RECORDS SUMMARY | 2024-07-22 12:32 | XMS_ITS | Clinical Summary ---
Author Organization [facility] Address [address] [place] [address] Care Team Providers Care Binder Coverstitch Name Role Phone Unavailable Primary Care Provider Unavailabl e Source Comments [facility],non-owned Affiliates and Associated Physician Practices is amultiple site organization consisting of ambulatory clinics and hospital sitesin [place], [place], [place] and [place]. This disclosure is being madepursuant to the Care Everywhere program and may not contain all information available regarding this patient. Last updated 18.[facility] [employer] Allergies No known active allergies Medications * [...] Comments Blood Pressure 140/72 07/18/2020 2:31 PM COSTING MANAGER Pulse 64 07/18/2020 2:31 PM COSTING MANAGER Temperature 36.8 ??C (98.3 ??F) 07/18/2020 2:31 PM CS T Respiratory Rate 16 07/18/2020 2:31 PM COSTING MANAGER Oxygen Saturation 97% 07/18/2020 2:31 PM COSTING MANAGER Inhaled Oxygen Concentration - - Weight 90.7 kg (200 lb) 07/18/2020 2:31 PM COSTING MANAGER Height 180.3 cm (5' 11 ) 07/18/2020 2:31 PM COSTING MANAGER Body Mass Index 27.89 07/18/2020 2:31 PM COSTING MANAGER Plan of Treatment Health Maintenance Due Date [...]
--- OUTSIDE RECORDS SUMMARY | 2024-07-22 12:32 | XMS_ITS | Referral Summary ---
Author Organization [facility] Address [address] [place] [address] Care Team Providers Care Etiology Teacher Name Role Phone No, Physician Primary Care Provider [phone] Allergies No known active allergies Medications losartan [...] 04/28/2023 Assessment & Plan (08/17/2023 2:01 PM WASTE REMOVALIST): Now with posterior changes involving visual axis. Educated on findings and will hold off on spec update (unless just raising SEG HEIGHT which is too low). Will refer for cataract eval next available, sooner prn Assessment & Plan (04/28/2023 4:35 PM WASTE REMOVALIST): Mild changes noted and discussed, not visually significant. Update specs as desired. Monitor. 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
--- OUTSIDE RECORDS SUMMARY | 2024-07-22 12:32 | XMS_ITS | Clinical Summary ---
Author Organization [facility] Address [address] [place] [address] Care Team Providers Care Construction Safety Consultant Name Role Phone No, Physician Primary Care Provider [phone] Allergies No known active allergies Medications losartan [...] 04/28/2023 Assessment & Plan (08/17/2023 2:01 PM CUSTOMER SOLUTIONS TEAMMATE): Now with posterior changes involving visual axis. Educated on findings and will hold off on spec update (unless just raising SEG HEIGHT which is too low). Will refer for cataract eval next available, sooner prn Assessment & Plan (04/28/2023 4:35 PM CUSTOMER SOLUTIONS TEAMMATE): Mild changes noted and discussed, not visually significant. Update specs as desired. Monitor. 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
--- OUTSIDE RECORDS SUMMARY | 2024-07-22 12:32 | XMS_ITS | Patient Health Summary ---
Author Organization [facility] [employer] Address [address] [place] [address] Care Team Providers Care Business Rules Developer Name Role Phone Unavailable Primary Care Provider Unavailabl e Note from [facility],non-owned Affiliates and Associated Physician Practices is amultiple site organization consisting of ambulatory clinics and hospital sitesin [place], [place], [place] and [place]. This disclosure is being madepursuant to the Care Everywhere program and may not contain all information available regarding this patient. Last updated 18.[facility] [employer] Allergies No known active allergies Medications * [...] Comments Blood Pressure 140/72 07/18/2020 2:31 PM DATA ARCHITECT Pulse 64 07/18/2020 2:31 PM DATA ARCHITECT Temperature 36.8 ??C (98.3 ??F) 07/18/2020 2:31 PM CS T Respiratory Rate 16 07/18/2020 2:31 PM DATA ARCHITECT Oxygen Saturation 97% 07/18/2020 2:31 PM DATA ARCHITECT Inhaled Oxygen Concentration - - Weight 90.7 kg (200 lb) 07/18/2020 2:31 PM DATA ARCHITECT Height 180.3 cm (5' 11 ) 07/18/2020 2:31 PM DATA ARCHITECT Body Mass Index 27.89 07/18/2020 2:31 PM DATA ARCHITECT
[2024-07-22 12:50] VITALS: BP 148/79; PULSE 69; RESP 16; TEMP 36.3; O2SAT 97
--- OUTSIDE RECORDS SUMMARY | 2024-07-22 14:14 | XMS_ITS | Referral Summary ---
Author Organization [facility] Address [address] [place] [address] Care Team Providers Care Acting Instructor Name Role Phone Unavailable Primary Care Provider Unavailabl e Source Comments [facility],non-owned Affiliates and Associated Physician Practices is amultiple site organization consisting of ambulatory clinics and hospital sitesin [place], [place], [place] and [place]. This disclosure is being madepursuant to the Care Everywhere program and may not contain all information available regarding this patient. Last updated 18.[facility] [employer] Allergies No known active allergies Medications * [...] Comments Blood Pressure 140/72 07/18/2020 2:31 PM ACID TESTER Pulse 64 07/18/2020 2:31 PM ACID TESTER Temperature 36.8 ??C (98.3 ??F) 07/18/2020 2:31 PM CS T Respiratory Rate 16 07/18/2020 2:31 PM ACID TESTER Oxygen Saturation 97% 07/18/2020 2:31 PM ACID TESTER Inhaled Oxygen Concentration - - Weight 90.7 kg (200 lb) 07/18/2020 2:31 PM ACID TESTER Height 180.3 cm (5' 11 ) 07/18/2020 2:31 PM ACID TESTER Body Mass Index 27.89 07/18/2020 2:31 PM ACID TESTER Plan of Treatment Not on file
--- OUTSIDE RECORDS SUMMARY | 2024-07-22 14:14 | XMS_ITS | Patient Health Summary ---
Author Organization [facility] [employer] Address [address] [place] [address] Care Team Providers Care Gas Worker Name Role Phone Unavailable Primary Care Provider Unavailabl e Note from [facility],non-owned Affiliates and Associated Physician Practices is amultiple site organization consisting of ambulatory clinics and hospital sitesin [place], [place], [place] and [place]. This disclosure is being madepursuant to the Care Everywhere program and may not contain all information available regarding this patient. Last updated 18.[facility] [employer] Allergies No known active allergies Medications * [...] Comments Blood Pressure 140/72 07/18/2020 2:31 PM MANAGER TRADE Pulse 64 07/18/2020 2:31 PM MANAGER TRADE Temperature 36.8 ??C (98.3 ??F) 07/18/2020 2:31 PM CS T Respiratory Rate 16 07/18/2020 2:31 PM MANAGER TRADE Oxygen Saturation 97% 07/18/2020 2:31 PM MANAGER TRADE Inhaled Oxygen Concentration - - Weight 90.7 kg (200 lb) 07/18/2020 2:31 PM MANAGER TRADE Height 180.3 cm (5' 11 ) 07/18/2020 2:31 PM MANAGER TRADE Body Mass Index 27.89 07/18/2020 2:31 PM MANAGER TRADE
--- OUTSIDE RECORDS SUMMARY | 2024-07-22 14:14 | XMS_ITS | Clinical Summary ---
Author Organization [facility] Address [address] [place] [address] Care Team Providers Care Flight Simulator Teacher Name Role Phone Unavailable Primary Care Provider Unavailabl e Source Comments [facility],non-owned Affiliates and Associated Physician Practices is amultiple site organization consisting of ambulatory clinics and hospital sitesin [place], [place], [place] and [place]. This disclosure is being madepursuant to the Care Everywhere program and may not contain all information available regarding this patient. Last updated 18.[facility] [employer] Allergies No known active allergies Medications * [...] Comments Blood Pressure 140/72 07/18/2020 2:31 PM TYPE PROOF REPRODUCER Pulse 64 07/18/2020 2:31 PM TYPE PROOF REPRODUCER Temperature 36.8 ??C (98.3 ??F) 07/18/2020 2:31 PM CS T Respiratory Rate 16 07/18/2020 2:31 PM TYPE PROOF REPRODUCER Oxygen Saturation 97% 07/18/2020 2:31 PM TYPE PROOF REPRODUCER Inhaled Oxygen Concentration - - Weight 90.7 kg (200 lb) 07/18/2020 2:31 PM TYPE PROOF REPRODUCER Height 180.3 cm (5' 11 ) 07/18/2020 2:31 PM TYPE PROOF REPRODUCER Body Mass Index 27.89 07/18/2020 2:31 PM TYPE PROOF REPRODUCER Plan of Treatment Health Maintenance Due Date [...]
--- OUTSIDE RECORDS SUMMARY | 2024-07-22 14:14 | XMS_ITS | Clinical Summary ---
Author Organization [facility] Address [address] [place] [address] Care Team Providers Care Public Information Officer Name Role Phone No, Physician Primary Care Provider [phone] Allergies No known active allergies Medications losartan [...] 04/28/2023 Assessment & Plan (08/17/2023 2:01 PM DENTAL CHAIR ASSEMBLER): Now with posterior changes involving visual axis. Educated on findings and will hold off on spec update (unless just raising SEG HEIGHT which is too low). Will refer for cataract eval next available, sooner prn Assessment & Plan (04/28/2023 4:35 PM DENTAL CHAIR ASSEMBLER): Mild changes noted and discussed, not visually significant. Update specs as desired. Monitor. Ocular myasthenia gravis 09/12/2020 Assessment & Plan (08/17/2023 2:01 PM DENTAL CHAIR ASSEMBLER): Continue close f/u with neurology/neuro-oph Assessment & Plan (04/28/2023 4:35 PM DENTAL CHAIR ASSEMBLER): Well controlled on current therapy, continue follow [...] 03/15/2020, 2015 Insurance MEDIC[employer] Care Teams Public Information Officer Relationship Specialty Start Date End Date No, Physician PCP - General 09/12/20
--- OUTSIDE RECORDS SUMMARY | 2024-07-22 14:14 | XMS_ITS | Referral Summary ---
Author Organization [facility] Address [address] [place] [address] Care Team Providers Care Motion Pictures Cartoonist Name Role Phone No, Physician Primary Care Provider [phone] Allergies No known active allergies Medications losartan [...] 04/28/2023 Assessment & Plan (08/17/2023 2:01 PM HARD ROCK MINER): Now with posterior changes involving visual axis. Educated on findings and will hold off on spec update (unless just raising SEG HEIGHT which is too low). Will refer for cataract eval next available, sooner prn Assessment & Plan (04/28/2023 4:35 PM HARD ROCK MINER): Mild changes noted and discussed, not visually significant. Update specs as desired. Monitor. Ocular myasthenia gravis 09/12/2020 Assessment & Plan (08/17/2023 2:01 PM HARD ROCK MINER): Continue close f/u with neurology/neuro-oph Assessment & Plan (04/28/2023 4:35 PM HARD ROCK MINER): Well controlled on current therapy, continue follow [...] Treatment Not on file Insurance MEDICARE SOLUTIONS [facility] MEDIC[facility] Address: [address] [address] [place] [address] Care Teams Motion Pictures Cartoonist Relationship Specialty Start Date End Date No, Physician PCP - General 09/12/20
--- NOTE | 2024-07-22 14:59 | ED_ITS ---
HPI - General Adult General Chief complaint: Unspecified Stated complaint: staple removal Time Seen by Provider: 07/22/24 14:03 Source: patient Mode of arrival: ambulatory Limitations: no limitations History of Present Illness HPI narrative: This is an 83-year-old male that presents to the emergency department for staple removal. He had ying placed 10 days ago on his scalp. Related Data Home Medications ?Medication ?Instructions ?Recorded ?Confirmed ?Last Taken ?Type ascorbate calcium (vitamin C) 500 500 mg PO DAILY 01/01/22 03/27/23 Unknown History mg tablet aspirin 81 mg tablet,delayed 81 mg PO DAILY 01/01/22 03/27/23 Unknown History release (Adult Aspirin Regimen) glucosamine sulfate 500 mg tablet 500 mg PO DAILY 01/01/22 03/27/23 Unknown History (Glucosamine) losartan 25 mg tablet 25 mg PO DAILY 01/01/22 03/27/23 Unknown History pyridostigmine bromide 180 mg 180 mg PO BID 01/01/22 03/27/23 Unknown History tablet,extended release Allergies Allergy/AdvReac Type Severity Reaction Status Date / Time No Known Allergies Allergy Verified 03/27/23 12:38 Review of Systems Review of Systems: CONSTITUTIONAL: Denies fever SKIN: Denies erythema, abnormal drainage All systems reviewed & are unremarkable except as noted in HPI and below PMFSH Past Medical History Medical History Colorectal cancer Hypertension Myasthenia gravis Prostate cancer Surgical History Surgical History H/O inguinal hernia repair Right Inguinal hernia repair on 02/18/22 H/O knee surgery History of right hemicolectomy Family History Family History Other Hypertension Social History Social History Smoking status: Former smoker Tobacco type: cigarettes Second hand tobacco smoke exposure: No Additional smoking assessment comments: STATES SMOKED OFF/ON SOCIALLY AGE 21- 51, QUIT 1996 Alcohol intake: current Drinks per week: 7 Alcohol use details: social Substance use: never Substance use type: does not use Living arrangements: with friend(s) Additional living arrangements comments: LIVES WITH SIGNIFICANT OTHER Gender identity (if verbalized by the patient): Male Spiritual care concerns: No Exam Narrative: GENERAL: Well-appearing, well-nourished, and in no acute distress. HEAD: Normocephalic. Six ying present on the anterior scalp EYES: EOMI. EXTREMITIES: Normal range of motion. No edema. SKIN: Warm, dry, no rash. NEURO: No focal deficits. Alert and oriented x3. PSYCH: Normal mood and affect Course Course Emergency Course: Ying easily removed Vital Signs Vital signs: Vital Signs Temperature 97.4 F L 07/22/24 12:50 Pulse Rate 69 07/22/24 12:50 Respiratory Rate 16 07/22/24 12:50 Blood Pressure 148/79 H 07/22/24 12:50 Pulse Oximetry 97 07/22/24 12:50 Temperature 97.4 F L 07/22/24 12:50 Pulse Rate 69 07/22/24 12:50 Respiratory Rate 16 07/22/24 12:50 Blood Pressure 148/79 H 07/22/24 12:50 Pulse Oximetry 97 07/22/24 12:50 Procedures Other Procedure Procedure 1: Other Procedure: 6 ying removed with staple remover Medical Decision Making MDM Narrative Medical decision making narrative: Patient presents to the emergency department for staple removal. [place] were easily removed. Wound appears well healing. Vital Signs Vital Signs: Vital Signs Temperature 97.4 F L 07/22/24 12:50 Pulse Rate 69 07/22/24 12:50 Respiratory Rate 16 07/22/24 12:50 Blood Pressure 148/79 H 07/22/24 12:50 Pulse Oximetry 97 07/22/24 12:50 Temperature 97.4 F L 07/22/24 12:50 Pulse Rate 69 07/22/24 12:50 Respiratory Rate 16 07/22/24 12:50 Blood Pressure 148/79 H 07/22/24 12:50 Pulse Oximetry 97 07/22/24 12:50 Critical Care Time Critical Care Time Critical Care Time: No Discharge Plan Discharge Clinical Impression: Encounter for removal of ying Patient Disposition: Home, Self-Care Condition: Stable Additional Instructions: Return to the emergency department if you experience fever, redness or swelling of your wound, abnormal drainage from your wound, or any other symptoms that are concerning to you. You may let the water run over the wound in the shower. It appears well healing Follow-up with your primary care doctor if needed Patient Language: Lithuanian Prescriptions: No Action cephalexin 500 mg capsule 500 mg PO Q8H 7 Days Qty: 21 0RF aspirin [Adult Aspirin Regimen] 81 mg tablet,delayed release (DR/EC) 81 mg PO DAILY Patient Comments: HS pyridostigmine bromide 180 mg tablet extended release 180 mg PO BID Patient Comments: TID Rx Instructions: administer 6 hours apart glucosamine sulfate [Glucosamine] 500 mg tablet 500 mg PO DAILY Patient Comments: QAM Rx Instructions: administer with a meal ascorbate calcium (vitamin C) 500 mg tablet 500 mg PO DAILY Patient Comments: QAM losartan 25 mg tablet 25 mg PO DAILY Patient Comments: QAM Follow-up/Referrals: UNKNOWN,DOCTOR [Primary Care Provider] -
== END 2024-07-22 15:13 | disposition home or self-care (01) ==
PROVIDERS: Emergency Provider Physician Assistant
DX: Z48.02 Encounter for removal of sutures (principal); I10 Essential (primary) hypertension; Z85.038 Personal history of other malignant neoplasm of large intestine; Z85.46 Personal history of malignant neoplasm of prostate; Z87.891 Personal history of nicotine dependence
CPT/HCPCS: 15853; 99281

== ENCOUNTER 2024-09-15 13:18 | Emergency (ER) | payer MEDICARE, SELFPAY ==
--- NOTE | ~2024-09-15 | XR_ITS ---
EXAMINATION: XR chest 2V 09/15/2024 13:57 INDICATION: Cough and shortness of breath PROCEDURE: 2 view chest COMPARISON: No prior studies for comparison. FINDINGS: The lungs are clear. The cardiomediastinal silhouette is within normal limits. There are no pleural effusions. There is no pneumothorax suspected. IMPRESSION: 1: NO ACUTE CARDIOPULMONARY DISEASE. Reviewed, dictated and finalized at location A.
[2024-09-15 13:32] VITALS: BP 125/76; PULSE 69; RESP 16; TEMP 37; O2SAT 97
--- NOTE | 2024-09-15 13:36 | ED_ITS ---
HPI - URI/Sore Throat General Chief Complaint: Upper Respiratory Infection Stated Complaint: CHEST PAIN/SOB/COUGH Time Seen by Provider: 09/15/24 13:36 Source: patient Mode of arrival: ambulatory Limitations: no limitations History of Present Illness HPI Narrative: 84 yo M presents with c/o dry cough for 1 wk. Last 2 days reports some congestion in chest. Some SOB with exertion. Afebrile. Concerned he may have pn e[place]. Also reports sore throat for several months, maybe even a year . Has pain with swallowing but no difficulty swallowing does not have a PCP. lives mostly in [place]. has oncologist there Due to history of colon and prostate cancer. plans to mention throat pain to oncologist at next appt. all systems reviewed and negative except as noted above. Related Data Home Medications ?Medication ?Instructions ?Recorded ?Confirmed ?Last Taken ?Type ascorbate calcium (vitamin C) 500 500 mg PO DAILY 01/01/22 09/15/24 Unknown H istory mg tablet glucosamine sulfate 500 mg tablet 500 mg PO DAILY 01/01/22 09/15/24 Unknown History (Glucosamine) losartan 25 mg tablet 25 mg PO DAILY 01/01/22 09/15/24 Unknown History pyridostigmine bromide 180 mg 180 mg PO BID 01/01/22 09/15/24 Unknown History tablet,extended release cholecalciferol (vitamin D3) 125 10,000 unit PO DAILY 09/15/24 09/15/24 Unknown History mcg (5,000 unit) tablet (Vitamin D3) Allergies Allergy/AdvReac Type Severity Reaction Status Date / Time No Known Allergies Allergy Verified 09/15/24 13:27 Review of Systems Review of Systems: CONSTITUTIONAL: Denies fever, chills, or sweats. EYES: Denies visual changes, redness, or discharge. ENT: Denies rhinorrhea, congestion. Reports sore throat. reports otalgia. CARDIOVASCULAR: Denies chest pain, palpitations, or edema. RESPIRATORY: Reports cough , chest congestion, dyspnea with exertion. GASTROINTESTINAL: Denies abdominal pain, nausea, vomiting, or diarrhea. GENITOURINARY: Denies dysuria or hematuria. SKIN: Denies rash or itching. MUSCULOSKELETAL: Denies back pain, joint pain, or myalgia. NEUROLOGIC: Denies headache, numbness, or weakness. PSYCHIATRIC: Denies anxiety or depression. All other systems reviewed are negative, except as documented in HPI. [facility] Past Medical History Medical History Colorectal cancer Hypertension Myasthenia gravis Prostate cancer Surgical History Surgical History H/O inguinal hernia repair Right Inguinal hernia repair on 02/18/22 H/O knee surgery History of right hemicolectomy Family History Family History Other Hypertension Social History Social History Smoking status: Former smoker Tobacco type: cigarettes Second hand tobacco smoke exposure: No Additional smoking assessment comments: STATES SMOKED OFF/ON SOCIALLY AGE 21- 51, QUIT 1996 Alcohol intake: current Drinks per week: 7 Alcohol use details: social Substance use: never Substance use type: does not use Living arrangements: with friend(s) Additional living arrangements comments: LIVES WITH SIGNIFICANT OTHER Gender identity (if verbalized by the patient): Male Spiritual care concerns: No Comments At time of signature, agree with nursing past medical, surgical, social and family history. There is no relevant family history pertinent to the presenting complaint. Exam Narrative: GENERAL: This is a well-nourished, well-developed patient, in no apparent distress. HEAD: normocephalic, atraumatic. EYES: PERRL. Sclera clear/white. Vision is grossly intact. EARS: External ears normal, auditory canals clear and without drainage, TMs normal without perforation. Hearing grossly intact. NOSE: External nose normal with no obvious nasal discharge, nares without redness, no rhinorrhea. THROAT: Mucous membranes moist, posterior pharynx clear. NECK: Neck supple, non-tender without lymphadenopathy, masses or thyromegaly. CARDIOVASCULAR: Regular rate and rhythm without murmurs, gallops, or rubs. RESPIRATORY: Clear to auscultation. Breath sounds equal bilaterally. No wheezes, rales, or rhonchi. SKIN: warm, Dry, intact with no suspicious lesions or rash, good texture and turgor. NEURO: awake, alert, and oriented to person, place and time. There were no obvious focal neurologic abnormalities. EXTREMITIES: No joint tenderness, effusion, or edema noted. Course Course Level of Care: Express Care Visit Vital Signs Vital signs: Vital Signs Temperature 37.0 C 09/15/24 13:32 Pulse Rate 69 09/15/24 13:32 Respiratory Rate 16 09/15/24 13:32 Blood Pressure 125/76 09/15/24 13:32 Pulse Oximetry 97 09/15/24 13:32 Temperature 37.0 C 09/15/24 13:32 Pulse Rate 69 09/15/24 13:32 Respiratory Rate 16 09/15/24 13:32 Blood Pressure 125/76 09/15/24 13:32 Pulse Oximetry 97 09/15/24 13:32 reviewed MDM - URI/Sore Throat MDM Narrative Medical decision making narrative: patient's chest x-ray normal. Will treat patient with antibiotic due to duration of symptoms. Referred to primary care physician. Recommend he follow- up for further evaluation of throat pain. Please be advised this is a medical document. It is intended for [id number] communication. It is written in medical language and may contain unfamiliar abbreviations or verbiage. Medical documents are intended to carry relevant information, facts as evident, and the clinical opinion of the practitioner at the time of the encounter. This report may have been done utilizing a voice recognition system. Attempts have been made to correct errors. However, there may be uncorrected grammatical, spelling, and recognition errors present. The file time of this note does not necessarily represent the time of service. Imaging Data My impression: Agree with radiologist Radiologist's impression: EXAMINATION: XR chest 2V 09/15/2024 13:57 INDICATION: Cough and shortness of breath PROCEDURE: 2 view chest COMPARISON: No prior studies for comparison. FINDINGS: The lungs are clear. The cardiomediastinal silhouette is within normal limits. There are no pleural effusions. There is no pneumothorax suspected. IMPRESSION: 1: NO ACUTE CARDIOPULMONARY DISEASE. Discharge Plan Discharge Clinical Impression: Cough, Pain in throat Patient Disposition: Home, Self-Care Condition: Stable Instructions: Antibiotic Form, Acute Cough (ED) Additional Instructions: Your chest x-ray was normal today. Take medications as prescribed. Schedule a follow up appointment with a primary care provider and a GI specialist. For any worsening of symptoms go to the ER Patient Language: [place] Prescriptions: New benzonatate 200 mg capsule 200 mg PO TID PRN (Reason: cough) Qty: 20 0RF amoxicillin-pot clavulanate 875-125 mg tablet 1 tablet PO Q12H 7 Days Qty: 14 0RF No Action cholecalciferol (vitamin D3) [Vitamin D3] 125 mcg (5,000 unit) tablet 10,000 unit PO DAILY pyridostigmine bromide 180 mg tablet extended release 180 mg PO BID Patient Comments: TID Rx Instructions: administer 6 hours apart glucosamine sulfate [Glucosamine] 500 mg tablet 500 mg PO DAILY Patient Comments: QAM Rx Instructions: administer with a meal ascorbate calcium (vitamin C) 500 mg tablet 500 mg PO DAILY Patient Comments: QAM losartan 25 mg tablet 25 mg PO DAILY Patient Comments: QAM Follow-up/Referrals: PHYSICIAN,UMBRELLA REPAIRER [Primary Care Provider] - Oanh France FNP-C [Advanced Practice Nurse] - (establish care with a primary care provider) Rogerio Jaimes MD [Physician] - (follow up with a GI specialist to further evaluate throat pain) Time of Disposition: 14:21
== END 2024-09-15 14:26 | disposition home or self-care (01) ==
PROVIDERS: Emergency Provider Nurse Practitioner Family
DX: R05.9 Cough, unspecified (principal); R07.0 Pain in throat; I10 Essential (primary) hypertension; G70.00 Myasthenia gravis without (acute) exacerbation; Z87.891 Personal history of nicotine dependence; Z85.038 Personal history of other malignant neoplasm of large intestine; Z85.46 Personal history of malignant neoplasm of prostate; Z90.49 Acquired absence of other specified parts of digestive tract
CPT/HCPCS: 71046; 99213; G0463